=== PATIENT | female | born 2000 ===

== ENCOUNTER 2022-05-26 11:00 | Outpatient (CLI) | payer BC | END 2022-05-26 11:01 | disposition home or self-care (01) | LOC: SLR 11:00 | PROVIDERS: ATTEND Family Medicine | DX: G47.30 Sleep apnea, unspecified (principal) | CPT/HCPCS: 95810 ==

== ENCOUNTER 2022-05-27 09:08 | Outpatient (CLI) | payer BC | END 2022-05-27 09:09 | disposition home or self-care (01) | LOC: SLR 09:08 | PROVIDERS: ATTEND Family Medicine | DX: G47.14 Hypersomnia due to medical condition (principal) | CPT/HCPCS: 95805 ==